=== PATIENT | male | born 1950 | race Hispanic/Latino ===

== ENCOUNTER 2017-11-20 07:36 | Emergency (ER) | payer OTHER ==
[~2017-11-20 07:36] MED LIST: ASPI-1197 PO; ATOR20TA65 PO; ERGO500014 PO; LANS15CA17 PO; LISI2.5T2 PO
[2017-11-20] MEDS ORDERED: MORPHINE SULFATE 8 MG/ML VIAL ONE (07:49)
[2017-11-20] MEDS ORDERED: SODIUM CHLORIDE 0.9% 1000ML 1,000 ML IV ONE (07:49)
[2017-11-20 08:07] LABS: BASOPHILS % (AUTO) 0.8 % (0.0-5.0); EOSINOPHILS % (AUTO) 3.3 % (0.0-8.0); HEMATOCRIT 38.9 % (42-54); LYMPHOCYTES % (AUTO) 18.8 % (21.0-51.0); MEAN CORPUSCULAR HEMOGLOBIN 30.4 pg (27.0-33.0); MEAN CORPUSCULAR HGB CONC 34.9 g/dL (32.0-36.0); MONOCYTES % (AUTO) 7.7 % (3.0-13.0); NEUTROPHILS % (AUTO) 69.4 % (40.0-77.0); PLATELET COUNT (AUTO) 232 K/uL (130-400); RED BLOOD CELL COUNT(AUTO) 4.46 MIL/uL (4.50-6.20); RED CELL DISTRIBUTION WIDTH 14.5 % (11.0-15.5); WHITE BLOOD COUNT (AUTO) 9.3 K/uL (4.8-10.8)
[2017-11-20 08:13] LABS: APPEARANCE,URINE Clear (CLEAR); BILIRUBIN,URINE Negative (NEGATIVE); COLOR,URINE Yellow (YELLOW); GLUCOSE, URINE (UA) Negative (NEGATIVE); KETONES,URINE Negative (NEGATIVE); LEUKOCYTE ESTERASE ,URINE Negative (NEGATIVE); NITRATE,URINE Negative (NEGATIVE); OCCULT BLOOD,URINE Negative (NEGATIVE); PROTEIN,URINE Trace (NEGATIVE); UROBILINOGEN,URINE 0.2 mg/dL (0.2-1.0)
[2017-11-20 08:23] LABS: BACTERIA,URINE Rare /HPF (None Seen); SQUAMOUS EPITHELIAL CELL,UR Rare /LPF (0-2); WBC,URINE 0-1 /HPF (0-1)
[2017-11-20 08:26] LABS: CREATININE 1.9 mg/dL (0.5-1.5); POTASSIUM 4.1 mmol/L (3.5-5.1)
[2017-11-20 08:31] LABS: ALBUMIN 3.7 g/dL (3.5-5.0); BILIRUBIN,TOTAL 0.3 mg/dL (0.2-1.0); TOTAL PROTEIN, SERUM 7.1 g/dL (6.0-8.3)
[2017-11-20] MEDS ORDERED: ORPHENADRINE CITRATE 30 MG/ML ML ONE (10:26)
== END 2017-11-20 13:25 | disposition home or self-care (01) ==
LOC: EDH 07:36
DX: R10.9 Unspecified abdominal pain (principal); N28.1 Cyst of kidney, acquired; N28.9 Disorder of kidney and ureter, unspecified; K57.90 Diverticulosis of intestine, part unspecified, without perforation or abscess without bleeding; I10 Essential (primary) hypertension; E78.5 Hyperlipidemia, unspecified; Z90.49 Acquired absence of other specified parts of digestive tract; Z79.899 Other long term (current) drug therapy
CPT/HCPCS: 36415; 74176; 80053; 81001; 83690; 85025; 96374; 96375; 99285; J2270; J2360; J7030

== ENCOUNTER 2018-06-23 05:51 | Day surgery (SDC) | payer OTHER ==
[~2018-06-23] VITALS: Ht 172.7 cm; Wt 75.4 kg
[~2018-06-23 05:51] MED LIST changes: -LANS15CA17 PO; +PANT40TA25 PO; +SODIUM CHLORIDE 0.9% 1000ML 1,000 ML IV ONE
[2018-06-23 06:30] VITALS: BP 136/60
[2018-06-23] MEDS ORDERED: PROPOFOL 10 MG/ML 20ML VIAL IV ONE (07:48)
[2018-06-23] MEDS ORDERED: LIDOCAINE HCL-MPF 2% 5ML VIAL ONE (07:49)
[2018-06-23 08:09] VITALS: BP 121/88
[2018-06-23 08:14] VITALS: BP 126/77
[2018-06-23 08:19] VITALS: BP 132/77
[2018-06-23 08:24] VITALS: BP 126/84
[2018-06-23 08:29] VITALS: BP 133/81
== END 2018-06-23 08:46 | disposition home or self-care (01) ==
LOC: DAH 05:51
PROVIDERS: ATTEND Internal Medicine
DX: K29.50 Unspecified chronic gastritis without bleeding (principal); Z90.49 Acquired absence of other specified parts of digestive tract; I10 Essential (primary) hypertension; N40.1 Benign prostatic hyperplasia with lower urinary tract symptoms; K21.9 Gastro-esophageal reflux disease without esophagitis; Z98.890 Other specified postprocedural states; K85.90 Acute pancreatitis without necrosis or infection, unspecified
CPT/HCPCS: 43237; 43239; 88305; 93005; A4606; J2704; J3490; J7030; 43231

== ENCOUNTER 2018-07-27 05:35 | Day surgery (SDC) | payer OTHER ==
[~2018-07-27] VITALS: Ht 172.7 cm; Wt 74.3 kg
[2018-07-27] VITALS (10 sets, daily range): BP systolic 118–151; BP diastolic 70–86
[~2018-07-27 05:35] MED LIST changes: -ERGO500014 PO; -SODIUM CHLORIDE 0.9% 1000ML 1,000 ML IV ONE
[2018-07-27] MEDS ORDERED: SODIUM CHLORIDE 0.9% 1000ML 1,000 ML IV ONE (05:55)
[2018-07-27] MEDS ORDERED: IOHEXOL-350 50ML VIAL IV ONE (06:30)
[2018-07-27] MEDS ORDERED: FENTANYL CITRATE PF 50 MCG/1 ML 2ML VIAL ONE (06:31)
[2018-07-27] MEDS ORDERED: PROPOFOL 1000 MG/100 ML 100 ML IV ONE (06:31)
[2018-07-27] MEDS ORDERED: INDOMETHACIN 50 MG SUPP.RECT RC SCH (07:15)
== END 2018-07-27 07:50 | disposition home or self-care (01) ==
LOC: DAH 05:35 → ENDO 05:35
PROVIDERS: ATTEND Internal Medicine
DX: K80.50 Calculus of bile duct without cholangitis or cholecystitis without obstruction (principal); K21.9 Gastro-esophageal reflux disease without esophagitis; I10 Essential (primary) hypertension; K57.90 Diverticulosis of intestine, part unspecified, without perforation or abscess without bleeding; K85.90 Acute pancreatitis without necrosis or infection, unspecified; K29.50 Unspecified chronic gastritis without bleeding; B96.81 Helicobacter pylori [H. pylori] as the cause of diseases classified elsewhere; E78.49 Other hyperlipidemia; Z79.82 Long term (current) use of aspirin; Z79.899 Other long term (current) drug therapy; Z90.49 Acquired absence of other specified parts of digestive tract
CPT/HCPCS: 43261; 43264; 74330; 88305; A4606; C1769; J2704; J3010; J7030; Q9967

== ENCOUNTER → 2020-09-03 | Outpatient (CLI) | payer OTHER ==
[~2020-09-03] MED LIST changes: -PANT40TA25 PO; +PANT40TA54 PO
--- NOTE | 2020-09-03 14:52 | NUR ---
MBSS COMPLETED. -S/S OF ASPIRATION. RECOMMEND REGULAR TEXTURE, THIN LIQUIDS; PILLS WHOLE WITH LIQUIDS. RECOMMENDATIONS: 1. GI CONSULT; PLEASE CONSIDER UPPER GI. Addendum: 09/03/20 at 1454 by TK MCMILLAN, [facility] Amended: Links added.
== END | disposition home or self-care (01) ==
LOC: RAH 09:56
PROVIDERS: ATTEND Internal Medicine
DX: K21.9 Gastro-esophageal reflux disease without esophagitis (principal); R13.10 Dysphagia, unspecified; K30 Functional dyspepsia; R13.13 Dysphagia, pharyngeal phase
CPT/HCPCS: 74230; 92611

== ENCOUNTER → 2021-03-24 | Outpatient (CLI) | payer OTHER | END | disposition home or self-care (01) | LOC: RAH 12:20 | PROVIDERS: ATTEND Internal Medicine | DX: N50.811 Right testicular pain (principal); K40.20 Bilateral inguinal hernia, without obstruction or gangrene, not specified as recurrent; N50.3 Cyst of epididymis | CPT/HCPCS: 76870 ==

== ENCOUNTER → 2023-06-07 | Outpatient (CLI) | payer OTHER ==
[~2023-06-07] MED LIST changes: +LISI2.5T13 PO; -LISI2.5T2 PO
== END | disposition home or self-care (01) ==
LOC: RAH 12:17
PROVIDERS: ATTEND Internal Medicine
DX: G45.9 Transient cerebral ischemic attack, unspecified (principal); R42 Dizziness and giddiness
CPT/HCPCS: 70450; 93880

== ENCOUNTER → 2023-08-02 | Outpatient (CLI) | payer OTHER | END | disposition home or self-care (01) | LOC: SHCH 11:14 | PROVIDERS: ATTEND Student in an Organized Health Care Education/Training Program | DX: R42 Dizziness and giddiness (principal) | CPT/HCPCS: 93306 ==